=== PATIENT | female | born 1990 | race Caucasian/White ===

== ENCOUNTER → 2017-05-26 | Outpatient (CLI) | payer OTHER ==
[2017-05-26 18:52] LABS: Estradiol <11.8 pg/mL
[2017-05-26 19:30] LABS: Sex Horm Bind Glob 34.2 nmol/L (18.0-166.0)
== END | disposition home or self-care (01) ==
LOC: LABWHC1 11:55
PROVIDERS: ATTEND Obstetrics & Gynecology
DX: N91.2 Amenorrhea, unspecified (principal)
CPT/HCPCS: 36415; 80061; 82627; 82670; 82947; 83001; 83002; 83520; 83525; 84146; 84270; 84402; 84439; 84443

== ENCOUNTER → 2017-05-28 | Outpatient (CLI) | payer OTHER ==
--- NOTE | 2017-05-28 16:16 | US ---
EXAMINATION TYPE: US pelvic complete DATE OF EXAM: 05/28/2017 COMPARISON: Pelvic ultrasound October 30, 2011. CLINICAL HISTORY: N91.2 amenorrhoea. TECHNIQUE: Transabdominal (TA) Date of LMP: over 3 years ago EXAM MEASUREMENTS: Uterus: 6.6 x 2.2 x 3.6 cm Endometrial Stripe: 0.3 cm Right Ovary: 2.6 x 1.8 x 1.7 cm Left Ovary: 2.4 x 2.0 x 1.6 cm 1. Uterus: Anteverted appears wnl 2. Endometrium: wnl 3. Right Ovary: follicles noted 4. Left Ovary: follicles noted 5. Bilateral Adnexa: appears wnl 6. Posterior cul-de-sac: wnl IMPRESSION: No suspicious finding is seen to account for patient's symptoms.
== END | disposition home or self-care (01) ==
LOC: RADUSWWP 15:13
PROVIDERS: ATTEND Obstetrics & Gynecology
DX: N91.2 Amenorrhea, unspecified (principal)
CPT/HCPCS: 76856

== ENCOUNTER → 2022-10-15 | Outpatient (CLI) | payer BC, OTHER ==
--- NOTE | 2022-10-15 14:47 | P.PN ---
Subjective DATE: 10/15/2022 FOLLOW UP VISIT. Patient with obstructive sleep apnea hypopnea syndrome return to sleep center for follow-up visit. Recently patient had sleep study which documented obstructive sleep apnea hypopnea syndrome. Patient was initiated on PAP therapy and today is first visit after treatment was started. I discuss results of sleep studies with patient in details including polysomnogram and the CPAP titration. Patient was able to use BPAP equipment most of the nights. Patient sleeps better with BPAP, although experiences some drooling. [place] sleepiness scale is 6, which is normal. I checked information from BPAP unit. PAP unit pressure maximal inspiratory pressure 17, minimal expiratory pressure 6, average pressure 14.9 over 10.9, pressure-support 4 cm H2O. Usage is 82% and 72 % for more then 4 hours, average 6.5 hours per night. Leak is 13 l/m, which is in acceptable range. Apnea Hypopnea Index is 2.7, which is normal. MEDICATIONS:1. Lexapro 10 mg once a day 2. Trazodone 50 mg once a day 3. Inhalers for asthma, patient doesn't remember names. During physical exam: GENERAL: A pleasant patient without any distress. VITAL SIGNS: BP 112/74, HR 80, RR 16, weight 187.6, temperature 97.0, oxygen saturation at room air 95%. HEENT: PERRLA, EOMI.low position of soft palate, Mallapati 4 . NECK: Supple. No JVD. LUNGS: Clear to percussion and to auscultation. Good air exchange. No wheezing or rhonchi. HEART: S1, S2 regular. ABDOMEN: Soft and nontender. Obese EXTREMITIES: No clubbing or cyanosis. HEAD OF STOCK: Awake, alert, and oriented x3. No focal deficit. Impressions: 1. Obstructive sleep apnea-hypopnea syndrome. Patient demonstrated good co mpliance with treatment, benefiting from treatment. 2. Obesity. 3. History of restless leg symptoms. 4. Depression. 5. anxiety. 6. Hyperlipidemia. 7. History of prediabetes. 8. Amenorhea. Plan: 1. Continue using PAP equipment every night for the whole night. 2. To change air filter at least 1-2 times per month. 3. PAP unit should stay lower then position of the head. 4. Advised patient to remove all remaining water from humidifier canister daily and make it dry after each usage. Refill canister with fresh distilled water before each usage. 5. Sleep hygiene with regular time in bed for at least 8 hours. 6. Precautions related to driving. No driving if feel any sleepiness. 7. I will maintain prescription for PAP supplies including mask, tube, filters. 8. Follow up visit in 6 months or earlier if patient has any problems. 9. Watching and losing weight. Thank you very much for allowing me to participate in the management of your patient. Maurice Smith MD, PhD, FAASM. Diplomat of [place] [employer], Sleep Medicine Board by [place] [employer] [facility] [place]
== END ==
LOC: SLEEP 13:34 → MERGE 13:40
PROVIDERS: ATTEND Internal Medicine
DX: G47.33 Obstructive sleep apnea (adult) (pediatric) (principal); Z99.89 Dependence on other enabling machines and devices; F32.A Depression, unspecified; F41.9 Anxiety disorder, unspecified; E78.5 Hyperlipidemia, unspecified; E66.9 Obesity, unspecified; Z87.39 Personal history of other diseases of the musculoskeletal system and connective tissue; Z86.39 Personal history of other endocrine, nutritional and metabolic disease; N91.2 Amenorrhea, unspecified
CPT/HCPCS: 99212

== ENCOUNTER → 2023-05-19 | Outpatient (CLI) | payer BC, OTHER ==
--- NOTE | 2023-05-19 16:09 | P.PN ---
Subjective DATE: 05/19/2023 FOLLOW UP VISIT. Patient with obstructive sleep apnea hypopnea syndrome return to sleep center for follow-up visit. Information from previous visit have been reviewed. Patient is using PAP equipment every night for the whole night, getting PAP supplies in time. The patient does not have significant problems with the mask, PAP unit and humidification. [place] sleepiness scale is 8, which is normal. I checked information from PAP unit. PAP unit pressure maximal inspiratory pressure 17, minimal expiratory pressure 6, pressure-support 4, average pressure 15.6 over 11.6 cm H2O. Usage is 80 % for more then 4 hours, average 6.3 hours per night. Leak is 10 l/m, which is in acceptable range. Apnea Hypopnea Index is 2.9, which is normal. MEDICATIONS:1. Albuterol as needed 2. Levothyroxine 3. Lexapro 20 mg once a day During physical exam: GENERAL: A pleasant patient without any distress. VITAL SIGNS: BP 100/69, HR 83, RR 12 , weight 191.8, temperature 98.0, oxygen saturation at room air 93 % . HEENT: PERRLA, EOMI.low position of soft palate, Mallapati 4 . NECK: Supple. No JVD. LUNGS: Clear to percussion and to auscultation. Good air exchange. No wheezing or rhonchi. HEART: S1, S2 regular. ABDOMEN: Soft and nontender.[] EXTREMITIES: No clubbing or cyanosis. [employer]: Awake, alert, and oriented x3. No focal deficit. Impressions: 1. Obstructive sleep apnea-hypopnea syndrome. Patient demonstrated great compliance with treatment, benefiting from treatment. 2. Hypothyroidism. 3. Obesity, BMI 41.3. 4. History of depression. 5. History of anxiety. 6. History of restless leg symptoms. 7. History of prediabetes. 8. History amenorhea. Plan: 1. Continue using PAP equipment every night for the whole night. 2. To change air filter at least 1-2 times per month. 3. PAP unit should stay lower then position of the head. 4. Advised patient to remove all remaining water from humidifier canister daily and make it dry after each usage. Refill canister with fresh distilled water before each usage. 5. Sleep hygiene with regular time in bed for at least 8 hours. 6. Precautions related to driving. No driving if feel any sleepiness. 7. I will maintain prescription for PAP supplies including mask, tube, filters. 8. Watching and losing weight. 9. Follow up visit in 6 months or earlier if patient has any problems. Thank you very much for allowing me to participate in the management of your patient. Maurice Smith MD, PhD, FAASM. Diplomat of [place] [employer], Sleep Medicine Board by [place] [employer] Referral Clerk of [facility] [place]
== END ==
LOC: 3 N SLEEP 15:08
PROVIDERS: ATTEND Internal Medicine
DX: G47.33 Obstructive sleep apnea (adult) (pediatric) (principal); E66.9 Obesity, unspecified; F32.A Depression, unspecified; E03.9 Hypothyroidism, unspecified; F41.9 Anxiety disorder, unspecified; R73.03 Prediabetes; G25.81 Restless legs syndrome; Z68.41 Body mass index [BMI] 40.0-44.9, adult; Z79.899 Other long term (current) drug therapy; Z87.42 Personal history of other diseases of the female genital tract; Z99.89 Dependence on other enabling machines and devices; Z79.890 Hormone replacement therapy
CPT/HCPCS: 99212

== ENCOUNTER 2023-09-07 14:31 | Emergency (ER) | payer BC, OTHER ==
--- NOTE | 2023-09-07 14:36 | ED ---
General Adult HPI - General Source: patient, RN notes reviewed Mode of arrival: ambulatory Limitations: no limitations <Fabian Box - Last Filed: 09/07/23 14:34> - History of Present Illness -: minutes(s) Location: chest, left, upper extremity, lower extremity Severity scale (1-10): 7 Quality: sharp Consistency: constant Improves with: none Worsens with: none Associated Symptoms: denies other symptoms Treatments Prior to Arrival: none <Ran Nash - Last Filed: 09/15/23 11:59> - General Stated complaint: Fall,L Shoulder-R Knee/Foot Injury Time Seen by Provider: 09/07/23 14:35 - History of Present Illness Initial comments: 32-year-old female presents emergency Department chief complaint of a fall. Patient states she fell in [employer] parking lot. She complains of shoulder knee and foot pain. She denies any head injury no loss conscious. (Fabian Box) This is a 32-year-old female the ER after fall in the parking lot. Patient had trip and fall complaining of knee and foot pain also severe left shoulder pain. Not her head no loss of consciousness fall was mechanical (Ran Nash) - Related Data Allergies Allergy/AdvReac Type Severity Reaction Status Date / Time No Known Allergies Allergy Verified 09/07/23 14:54 Review of Systems ROS Other: All systems not noted in ROS Statement are negative. <Fabian Box - Last Filed: 09/07/23 14:34> ROS Other: All systems not noted in ROS Statement are negative. <Ran Nash - Last Filed: 09/15/23 11:59> ROS Statement: Those systems with pertinent positive or pertinent negative responses have been documented in the HPI. General Exam <Fabian Box - Last Filed: 09/07/23 14:34> General appearance: alert, in no apparent distress, anxious Head exam: Present: atraumatic, normocephalic, normal inspection Eye exam: Present: normal appearance, PERRL, EOMI. Absent: scleral icterus, conjunctival injection, periorbital swelling ENT exam: Present: normal exam, mucous membranes moist Neck exam: Present: normal inspection. Absent: tenderness, meningismus, lymphadenopathy Respiratory exam: Present: normal lung sounds bilaterally. Absent: respiratory distress, wheezes, rales, rhonchi, stridor Cardiovascular Exam: Present: regular rate, normal rhythm, normal heart sounds. Absent: systolic murmur, diastolic murmur, rubs, gallop, clicks GI/Abdominal exam: Present: soft, normal bowel sounds. Absent: distended, tenderness, guarding, rebound, rigid Extremities exam: Present: tenderness, normal capillary refill, other (Severe left shoulder pain). Absent: full ROM, pedal edema, joint swelling, calf tenderness Back exam: Present: normal inspection Neurological exam: Present: alert, oriented X3, CN II-XII intact Psychiatric exam: Present: normal affect, normal mood Skin exam: Present: warm, dry, intact, normal color. Absent: rash <Ran Nash - Last Filed: 09/15/23 11:59> - General Exam Comments Initial Comments: Visual Physical Exam Vital signs reviewed General: Well-appearing, nontoxic, no acute distress. Head: Normocephalic, atraumatic Eyes: PERRLA, EOMI ENT: Airway patent Chest: Nonlabored breathing Skin: No visual rash, normal skin tone Neuro: Alert and oriented 3 Musculoskeletal: No gross abnormalities (Fabian Box) Course <Ran Nash - Last Filed: 09/15/23 11:59> Vital Signs 09/07/23 14:51 Temperature 98.7 F Pulse Rate 71 Respiratory 18 Rate Blood Pressure 109/70 O2 Sat by Pulse 98 Oximetry - Reevaluation(s) Reevaluation #1: Medical records reviewed (Ran Nash) Reevaluation #2: Patient symptoms and pain is controlled (Ran Nash) Reevaluation #3: Patient informed results questions answered (Ran Nash) Reevaluation #4: Was pt. sent in by a medical professional or institution (, PA, DRESS CUTTER, urgent care, hospital, or group home...) When possible be specific @ -no Did you speak to anyone other than the patient for history (EMS, parent, family, police, friend...)? What history was obtained from this source @ -no Did you review nursing and triage notes (agree or disagree)? Why? @ -agree Are old charts reviewed (outside hosp., previous admission, EMS record, old EKG, old radiological studies, urgent care reports/EKG's, group home records)? Report findings @ -yes Differential Diagnosis (chest pain, altered mental status, abdominal pain women, abdominal pain men, vaginal bleeding, weakness, fever, dyspnea, syncope, headache, dizziness, GI bleed, back pain, seizure, CVA, palpatations, mental health, musculoskeletal)? @ -prior EKG interpreted by me (3pts min.). @ -no X-rays interpreted by me (1pt min.). @ -yes positive for left humerus fracture CT interpreted by me (1pt min.). @ -no U/S interpreted by me (1pt. min.). @ -no What testing was considered but not performed or refused? (CT, X-rays, U/S, labs)? Why? @ -none What meds were considered but not given or refused? Why? @ -none Did you discuss the management of the patient with other professionals (alondra george i.pita Emery, PA, DRESS CUTTER, lab, RT, psych nurse, social insurance analyst, sports equipment racker, teacher, electoral officer, child support case officer)? Give summary @ -no Was smoking cessation discussed for >3mins.? @ -no Was critical care preformed (if so, how long)? @ -no Were there social determinants of health that impacted care today? How? (Homelessness, low income, unemployed, alcoholism, drug addiction, transportation, low edu. Level, literacy, decrease access to med. care, correction, rehab)? @ -none Was there de-escalation of care discussed even if they declined (Discuss DNR or withdrawal of care, Hospice)? DNR status @ -no What co-morbidities impacted this encounter? (DM, HTN, Smoking, COPD, CAD, Cancer, CVA, ARF, Chemo, Hep., AIDS, mental health diagnosis, sleep apnea, morbid obesity)? @ -none Was patient admitted / discharged? Hospital course, mention meds given and route, prescriptions, significant lab abnormalities, going to OR and other pertinent info. @ - 32 female to the emergency department after fall, fall from standing and mechanical in nature fall on the left side with severe left shoulder pain she does have left humerus fracture which is placed in sling here in the ER, patient can be discharged home Discharge Undiagnosed new problem with uncertain prognosis? @ -no Drug Therapy requiring intensive monitoring for toxicity (Heparin, Nitro, Insulin, Cardizem)? @ -no Were any procedures done? @ -no Diagnosis/symptom? @ -Fall, left humerus fracture Acute, or Chronic, or Acute on Chronic? @ -Acute Uncomplicated (without systemic symptoms) or Complicated (systemic symptoms)? @ -Complicated Side effects of treatment? @ -no Exacerbation, Progression, or Severe Exacerbation? @ -exacerbation Poses a threat to life or bodily function? How? (Chest pain, [place], SC, pneumonia, PE, COPD, DKA, ARF, appy, cholecystitis, CVA, Diverticulitis, Homicidal, Suicidal, threat to staff... and all critical care pts) @ -yno (Ran Nash) Procedures - Orthopedic Splinting/Casting Injury #1 Side: left Upper Extremity Injury Location: shoulder <Ran Nash - Last Filed: 09/15/23 11:59> Medical Decision Making <Fabian Box - Last Filed: 09/07/23 14:34> - Radiology Data Radiology results: report reviewed (X-ray shoulder foot as well as the knee are positive for left humerus fracture), image reviewed <Ran Nash - Last Filed: 09/15/23 11:59> - Medical Decision Making I completed the quick note portion of this chart signed Fabian Box PA-C (Fabian Box) 32 female to the emergency department after fall, fall from standing and mechanical in nature fall on the left side with severe left shoulder pain she does have left humerus fracture which is placed in sling here in the ER, patient can be discharged home (Ran Nash) Disposition <Fabian Box - Last Filed: 09/07/23 14:34> Is patient prescribed a controlled substance at d/c from ED?: No Time of Disposition: 16:30 <Ran Nash - Last Filed: 09/15/23 11:59> Clinical Impression: Fall, Left humeral fracture Disposition: HOME SELF-CARE Condition: Good Instructions (If sedation given, give patient instructions): Arm Fracture in Adults (ED) Referrals: Juanito Montana MD [STAFF PHYSICIAN] - 1-2 days
[2023-09-07 15:16] VITALS: BP 109/70; PULSE 71; RESP 18; TEMP 98.7
--- NOTE | 2023-09-07 15:27 | XR ---
EXAMINATION TYPE: XR shoulder complete LT DATE OF EXAM: 09/07/2023 COMPARISON: NONE HISTORY: Pain TECHNIQUE: Three views are submitted. FINDINGS: There is a fracture involving the neck the left humerus. AC joint maintained. Visualized rib cage is intact. Lung bullock clear. IMPRESSION: 1. Acute fracture of the left humeral neck.
--- NOTE | 2023-09-07 15:28 | XR ---
EXAMINATION TYPE: XR knee complete LT DATE OF EXAM: 09/07/2023 COMPARISON: NONE HISTORY: Pain TECHNIQUE: Three views are submitted. FINDINGS: Joint spaces are preserved. Osseous structures are intact. No acute fracture seen. Mild deminerali zation. IMPRESSION: 1. No acute fracture or dislocation.
--- NOTE | 2023-09-07 15:30 | XR ---
EXAMINATION TYPE: XR foot complete RT DATE OF EXAM: 09/07/2023 COMPARISON: NONE HISTORY: Obtained TECHNIQUE: Three views are submitted. FINDINGS: The osseous structures are intact. There is no acute fracture or dislocation. There is diffuse ost eopenia. There is a mild hallux valgus deformity first digit. Small calcaneal spur.. IMPRESSION: 1. No acute fracture or dislocation. If symptoms persist, follow-up exam in 7 to 10 days could be ob tained.
[2023-09-07] MEDS ORDERED: Acetaminophen-Codeine 300-30mg TAB PO STA (16:55)
[2023-09-07] MEDS ORDERED: ACET/COD 300 MG/30 MG STARTER PACK 6 TAB BTL PO STA (16:55)
[2023-09-07] MEDS ORDERED: IBUPROFEN 600 MG STARTER PACK 4 TAB BTL PO STA (16:55)
[2023-09-07] MEDS ORDERED: traMADol 50 MG STARTER PACK 3 TAB BTL PO STA (16:55)
== END 2023-09-07 17:21 | disposition home or self-care (01) ==
LOC: EC 14:31
DX: S42.292A Other displaced fracture of upper end of left humerus, initial encounter for closed fracture (principal); W01.0XXA Fall on same level from slipping, tripping and stumbling without subsequent striking against object, initial encounter; Y92.481 Parking lot as the place of occurrence of the external cause
CPT/HCPCS: 99284

== ENCOUNTER → 2024-02-15 | Outpatient (CLI) | payer OTHER ==
--- NOTE | 2024-02-15 08:23 | US ---
EXAMINATION TYPE: US abdomen complete DATE OF EXAM: 02/15/2024 COMPARISON: NONE CLINICAL INDICATION: Female, 33 years old with history of R74.8 ABNORMAL LEVELS OF OTHER SERUM ENZYME S; abn labs, no symptoms TECHNIQUE: Multiple sonographic images of the abdomen are obtained. FINDINGS: EXAM MEASUREMENTS: Liver Length: 17.7 cm Gallbladder Wall: 0.2 cm CBD: 0.6 cm Spleen: 10.8 cm Right Kidney: 9.3 x 4.0 x 4.4 cm Left Kidney: 9.7 x 4.0 x 5.4 cm DATABASE ARCHITECT NOTES: carlos habitus and bowel gas Pancreas: wnl Liver: focal fatty sparring throughout, difficult to penetrate Gallbladder: multiple stones Evidence for sonographic Montana's sign: no CBD: wnl Spleen: wnl Right Kidney: wnl Left Kidney: wnl Upper IVC: wnl Abd Aorta: wnl The liver is homogenous with increased echotexture. The intrahepatic portion of the IVC and proximal abdominal aorta are within normal limits. There is evidence of cholelithiasis. Common bile duct is unremarkable. The visualized portions of the pancreas are homogenous. The spleen is unremarkable. Kidneys are symmetric and free of hydronephrosis. No renal lesions are seen. IMPRESSION: 1. No evidence for acute process. 2. Hepatic steatosis. 3. Cholelithiasis.
== END | disposition home or self-care (01) ==
LOC: RADUSWWP 07:18
PROVIDERS: ATTEND Family Medicine
DX: K76.0 Fatty (change of) liver, not elsewhere classified (principal); K80.20 Calculus of gallbladder without cholecystitis without obstruction; R74.8 Abnormal levels of other serum enzymes; R79.9 Abnormal finding of blood chemistry, unspecified
CPT/HCPCS: 76700

== ENCOUNTER → 2024-03-02 | Outpatient (CLI) | payer BC, OTHER ==
[2024-03-02 15:10] VITALS: BP 125/81; PULSE 106; RESP 16; TEMP 98.3
--- NOTE | 2024-03-02 15:29 | P.PROGSL ---
Subjective DATE: 03/02/2024 FOLLOW UP VISIT. Patient with obstructive sleep apnea hypopnea syndrome return to sleep center for follow-up visit. Information from previous visit have been reviewed. Patient is using PAP equipment every night for the whole night, getting PAP supplies in time. The patient does not have significant problems with the mask, PAP unit and humidification. [place] sleepiness scale is 6, which is normal. I checked information from PAP unit. PAP unit pressure maximal inspiratory pressure 17, minimal expiratory pressure 6, pressure support 4, average pressure 14.5 or 10.5 cm H2O. Usage is 90% for more then 4 hours, average 7 hours per night. Leak is 9.2 l/m, which is in acceptable range. Apnea Hypopnea Index is 1.5, which is normal. MEDICATIONS:1. Albuterol as needed Please see other medications below During physical exam: GENERAL: A pleasant patient without any distress. VITAL SIGNS: Please see below, weight 192 pounds, BMI 41.2. HEENT: PERRLA, EOMI.low position of soft palate, Mallapati 4 . NECK: Supple. No JVD. LUNGS: Clear to percussion and to auscultation. Good air exchange. No wheezing or rhonchi. HEART: S1, S2 regular. ABDOMEN: Soft and nontender. Obese EXTREMITIES: No clubbing or cyanosis. AGRICULTURAL EDUCATION PROFESSOR: Awake, alert, and oriented x3. No focal deficit. Impressions: 1. Obstructive sleep apnea-hypopnea syndrome. Patient demonstrated great compliance with treatment, benefiting from treatment. 2. Hypothyroidism. 3. Obesity, BMI 41.2. 4. History of depression. 5. History of anxiety. 6. History of restless leg syndrome. 7. Polycystic ovary syndrome. 8. Asthma. Plan: 1. Continue using PAP equipment every night for the whole night. 2. To change air filter at least 1-2 times per month. 3. PAP unit should stay lower then position of the head. 4. Advised patient to remove all remaining water from humidifier canister daily and make it dry after each usage. Refill canister with fresh distilled water before each usage. 5. Sleep hygiene with regular time in bed for at least 8 hours. 6. Precautions related to driving. No driving if feel any sleepiness. 7. I will maintain prescription for PAP supplies including mask, tube, filters. 8. Follow up visit in 6 months or earlier if patient has any problems. 9. Watching and losing weight. Thank you very much for allowing me to participate in the management of your patient. Maurice Smith MD, PhD, FAASM. Diplomat of [place] [employer], Sleep Medicine Board by [place] [employer] Marker Delivery [facility] [place] Objective - Vital Signs Vital Signs: Vital Signs Temp 98.3 F 03/02/24 15:09 Pulse 106 H 03/02/24 15:09 Resp 16 03/02/24 15:09 BP 125/81 03/02/24 15:09 Pulse Ox 93 L 03/02/24 15:09 FiO2 Intake & Output 03/01/24 03/02/24 03/02/24 18:59 06:59 18:59 Weight 87.09 kg Home Medications: Home Medications Medication Instructions Recorded Confirmed Type Escitalopram [Lexapro] 10 mg PO DAILY 03/02/24 03/02/24 History Levothyroxine Sodium [Levoxyl] 25 mcg PO DAILY 03/02/24 03/02/24 History
== END ==
LOC: 3 N SLEEP 14:51
PROVIDERS: ATTEND Internal Medicine
DX: G47.33 Obstructive sleep apnea (adult) (pediatric) (principal); E03.9 Hypothyroidism, unspecified; E66.9 Obesity, unspecified; J45.909 Unspecified asthma, uncomplicated; E28.2 Polycystic ovarian syndrome; F32.A Depression, unspecified; F41.9 Anxiety disorder, unspecified; Z87.39 Personal history of other diseases of the musculoskeletal system and connective tissue; Z68.41 Body mass index [BMI] 40.0-44.9, adult; Z99.89 Dependence on other enabling machines and devices; Z79.899 Other long term (current) drug therapy; Z79.890 Hormone replacement therapy
CPT/HCPCS: 99212

== ENCOUNTER → 2024-09-06 | Outpatient (CLI) | payer OTHER ==
--- NOTE | 2024-09-10 02:20 | MM ---
Reason for Exam: Screening (asymptomatic). Baseline mammogram. Patient History: Menarche at age 11. Patient has no children. Postmenopausal. Maternal grandmother had breast cancer. Risk Values: [place] 5 year model risk: 0.3%. NCI Lifetime model risk: 11.3%. Prior Study Comparison: Patient's first Mammogram. Tissue Density: The breasts are almost entirely fatty. Findings: Analyzed By CAD. The pattern is symmetrical. No significant interval change No suspicious groups of microcalcifications, spiculated or lobular masses, architectural distortion or other secondary signs of malignancy are mammographically apparent. Overall Assessment: Negative, BI-RAD 1 Management: Screening Mammogram of both breasts in 1 year. A negative mammogram report should not preclude additional follow up of suspicious palpable abnormalities. Patient should continue monthly self breast exam. A clinical breast exam by your physician is recommended on an annual basis and results should be correlated with mammographic findings. Note on [place] scores and lifetime risk: 1. A [place] score greater than 3% is considered moderate risk. If this is the case, consider specialist referral to assess eligibility for a risk reducing agent. 2. If overall lifetime risk for the development of breast cancer is 20% or higher, the patient may qualify for future screening with alternating mammogram and breast MRI. [facility], , 09/10/2024 2:16 AM. Electronically signed and approved by: Johnnie Montalvo D.O. Radiologis
== END | disposition home or self-care (01) ==
LOC: RADMAMWWP 14:45
PROVIDERS: ATTEND Family Medicine
DX: Z12.31 Encounter for screening mammogram for malignant neoplasm of breast (principal); Z80.3 Family history of malignant neoplasm of breast; Z78.0 Asymptomatic menopausal state; R92.313 Mammographic fatty tissue density, bilateral breasts
CPT/HCPCS: 77063; 77067

== ENCOUNTER → 2025-02-03 | Outpatient (CLI) | payer OTHER ==
[2025-02-03 15:07] LABS: Basophils # (A) 0.06 X 10*3/uL (0.00-0.10); Basophils % (A) 0.9 %; Eosinophils # (A) 0.25 X 10*3/uL (0.04-0.35); Eosinophils % (A) 3.9 %; HCT 51.3 % (37.2-46.3); HGB 16.3 g/dL (12.0-15.0); Lymphocytes # (A) 1.96 X 10*3/uL (0.90-5.00); Lymphocytes % (A) 30.7 %; MCH 30.5 pg (27.0-32.0); MCHC 31.8 g/dL (32.0-37.0); MCV 95.9 FL (80.0-97.0); Mean Platelet Volume 11.4 FL (9.5-12.2); Monocytes # (A) 0.51 X 10*3/uL (0.20-1.00); NRBC Per 100 WBC 0 X 10*3/uL (0.00-0.01); Neutrophils # (A) 3.59 X 10*3/uL (1.80-7.70); Neutrophils % (A) 56.2 %; Platelet Count 260 X 10*3/uL (140-440); RBC 5.35 X 10*6/uL (4.10-5.20); RDW 12.3 % (11.5-14.5); WBC 6.39 X 10*3/uL (4.50-10.00)
[2025-02-03 15:28] LABS: % Iron Saturation 19.46 (12.00-45.00); ALT 40 U/L (8-44); AST 29 U/L (13-35); Albumin 4.6 g/dL (3.8-4.9); Albumin/Globulin Ratio 1.64 Ratio (1.60-3.17); Alkaline Phosphatase 77 U/L (41-126); BUN/Creat Ratio 12.44 Ratio (12.00-20.00); Blood Urea Nitrogen 11.2 mg/dL (9.0-27.0); Calcium 9.6 mg/dL (8.7-10.3); Carbon Dioxide 26.1 mmol/L (21.6-31.8); Chloride 103 mmol/L (96-109); Globulin 2.8 g/dL (1.6-3.3); Glucose 99 mg/dL (70-110); Iron 87 UG/DL (50-170); LDL Cholesterol,Calculated 97.6 mg/dL (0.0-131.0); Potassium 4.1 mmol/L (3.5-5.5); Sodium 142 mmol/L (135-145); Total Bilirubin 0.3 mg/dL (0.3-1.2); Total Iron Binding Capacity 447 UG/DL (228-460); Total Protein 7.4 g/dL (6.2-8.2)
== END | disposition home or self-care (01) ==
LOC: LABWHC1 08:41
PROVIDERS: ATTEND Nurse Practitioner Family
DX: R74.01 Elevation of levels of liver transaminase levels (principal); F41.8 Other specified anxiety disorders; E55.9 Vitamin D deficiency, unspecified; E03.9 Hypothyroidism, unspecified; R73.03 Prediabetes; E78.2 Mixed hyperlipidemia
CPT/HCPCS: 36415; 80053; 80061; 82306; 82728; 83036; 83540; 83550; 84443; 85025